=== PATIENT | male | born 1965 | race Caucasian/White ===

== ENCOUNTER 2017-04-08 10:46 | Outpatient (CLI) ==
[2015-03-01 17:28] VITALS: BMI 28.7
[2017-04-08 11:04] LABS: BASOPHILS % (AUTO) 0.4 % (0.0-3.0); EOSINOPHILS # (AUTO) 0.1 K/ul (0.0-0.7); EOSINOPHILS % (AUTO) 1.4 % (0.0-7.0); HEMOGLOBIN 14.5 g/dl (14.0-18.0); IMMATURE GRANULOCYTE % (AUTO) 0.5 % (0.0-5.0); LYMPHOCYTES # (AUTO) 2.8 K/uL (0.60-3.4); LYMPHOCYTES % (AUTO) 29.1 (10.0-50.0); MEAN CORPUSCULAR HEMOGLOBIN 31.5 pg (27.0-31.0); MEAN CORPUSCULAR HGB CONC 34.5 (31.8-35.4); MEAN CORPUSCULAR VOLUME 91.1 fl (80.0-94.0); MONOCYTES % (AUTO) 10.3 (0-10); NEUTROPHILS # (AUTO) 5.6 K/ul (2.0-6.9); NEUTROPHILS % (AUTO) 58.3; PLATELET COUNT 222 10^3/uL (140-440); RED BLOOD COUNT 4.61 10^6/ul (4.70-6.10); WHITE BLOOD COUNT 9.54 K/ul (4.2-10.2)
[2017-04-08 11:43] LABS: ALBUMIN 3.9 g/dL (3.4-5.0); ALBUMIN/GLOBULIN RATIO 1.11; ANION GAP 13.2; BILIRUBIN,TOTAL 0.39 mg/dL (0.00-1.20); BUN/CREATININE RATIO 14.28; CHOL/HDL RATIO 4.7 (4.5-6.4); CREATININE 0.77 mg/dL (0.60-1.10); POTASSIUM 4.2 mmol/L (3.5-5.1); TOTAL PROTEIN 7.4 g/dL (6.4-8.2)
--- NOTE | 2017-04-08 12:08 | CT ---
Exam: CT of the abdomen pelvis without intravenous contrast. Comparison: 01/30/2014. Reason for exam: Unspecified abdominal pain. FINDINGS: Image interpretation is limited by the lack of intravenous contrast administration. Similar appearing heterogeneous mass lesion in the right lower lobe measuring approximately 5.1 cm. No pleural effusion, or focal consolidation. Atherosclerotic disease is seen within the coronary arterial vasculature. The liver, gallbladder, spleen, pancreas, and adrenal glands appear grossly unremarkable within the limitations of a noncontrasted examination. No hydronephrosis or hydroureter is seen in either kidney. Small vascular calcifications versus nonobstructive stones (measuring up to 3 mm) in the right renal collecting system. Incidental note of a splenule adjacent to the pancreatic tail. No focal small bowel dilatation or transition point. The appendix is unremarkable. There are several only fat containing periumbilical and ventral hernias. The bladder appears grossly unremarkable. Atherosclerotic disease is seen within the aorta and distal arterial vasculature. No suspicious appearing osteoblastic or osteolytic lesions. Degenerative disease is seen in the lumbosacral spine. Impression: 1. No acute imaging findings are seen within the abdomen or pelvis. 2. Similar appearing mixed density mass in the right lung base. 3. Nonobstructive right-sided nephrolithiasis
== END 2017-04-08 10:47 ==
LOC: RAD 10:46
PROVIDERS: ATTEND Emergency Medicine
DX: R10.9 Unspecified abdominal pain (principal); K43.9 Ventral hernia without obstruction or gangrene; I25.10 Atherosclerotic heart disease of native coronary artery without angina pectoris; R06.02 Shortness of breath
CPT/HCPCS: 36415; 80053; 80061; 83036; 84443; 85025

== ENCOUNTER 2017-04-18 08:47 | Outpatient (CLI) ==
[2015-03-01 17:28] VITALS: BMI 28.7
--- NOTE | 2017-04-18 10:15 | MRI ---
EXAM: MRI lumbar spine without IV contrast. DATE: 04/18/2017. HISTORY: Lumbar spondylosis with radiculopathy. TECHNIQUE: Sagittal and axial T1W and T2W sequences of the lumbar spine along with sagittal IR and coronal T2W sequences were obtained using 1.2 Sara magnet. No IV contrast. COMPARISON: CT abdomen/pelvis 04/08/2017. FINDINGS: There are five [id number] lumbar vertebra. No lumbar scoliosis is evident. No acut e lumbar fracture, subluxation, osseous malignancy, or pars interarticularis defect is demonstrated. Prominent osteophytes are observed at L2-3 and L3-4. Smaller osteophytes are noted at other lumba r levels. Lumbar vertebra are normal in height. Small, chronic Schmorl's nodes are identified at T 11, T12, and L5. T2W/T1W bone marrow signal is mildly heterogeneous due to areas of fatty infiltrat ion. Mild L2-3 and moderate L3-4 disc space narrowing is detected. No sacral fracture or stress re action is evident. Visible portion of each SI joint is grossly normal. Conus medullaris terminates at L1. Visible spinal cord is normal. No retroperitoneal lymphadenopathy, paraspinal mass, or aortic aneurysm is detected. Paraspinal musc ulature is symmetric bilaterally. Visible portions of the liver, spleen, adrenal glands and kidneys are normal. Segmental analysis: T11-12: Normal. T12-L1: Normal. L1-2: Normal. L2-3: Small concentric disc bulge, minor left facet arthropathy, and abundant dorsal epidural fat c ause mild central canal stenosis, minor right foraminal narrowing, and mild left foraminal stenosis. Left L2 nerve root contacts the disc bulge just lateral to the foramen. L3-4: Small concentric disc bulge, minor facet arthropathy, and abundant dorsal epidural fat cause mild central canal stenosis, minor/mild right foraminal narrowing, and minor left foraminal encroach ment. Right L3 nerve root may contact the disc bulge near the lateral margin of the foramen. L4-5: Minimal concentric disc bulge and minor left facet disease cause mild bilateral foraminal peng rowing. No central canal stenosis. L5-S1: Minor posterior to foraminal disc bulge and minor facet disease cause mild right and moderat e left foraminal stenoses. Left L5 nerve root contacts the disc bulge near the lateral margin of th e foramen. No central canal stenosis. IMPRESSIONS: 1. Lumbar spine moderate spondylosis, minor facet arthropathy, and multilevel mild DDD 2. Multilevel foraminal stenoses as described. Left L2, right L3, and left L5 nerve roots appear c ompromised near the foramen, and may be sources for pain/radiculopathy. 3. Mild central canal stenoses at L2-3 and L3-4. 4. T - L-spine small, chronic Schmorl's nodes. 5. Mild, benign bone marrow fatty infiltration.
== END 2017-04-18 08:48 | disposition home or self-care (01) ==
LOC: RAD 08:47
PROVIDERS: ATTEND Emergency Medicine
DX: M47.26 Other spondylosis with radiculopathy, lumbar region (principal)

== ENCOUNTER 2017-04-20 07:46 | Outpatient (CLI) ==
[2015-03-01 17:28] VITALS: BMI 28.7
--- NOTE | 2017-04-20 08:42 | CT ---
EXAM: CT of the chest with contrast History: Follow-up right lung mass. Comparison: Chest CT 07/21/2016 Technique: Multiplanar CT images through the thorax were obtained following administration of IV co ntrast Findings: Heart size is within normal limits. Coronary calcifications. No pericardial effusion. N o pathologically enlarged thoracic lymph nodes. Great vessels are unremarkable. Right lower lobe lesion containing fat and soft tissue has slightly increased in size compared to th e prior study with the more solid component now measuring 4.6 cm and previously measured 4.1 cm. No developing lung masses. No pleural fluid and no pneumothorax. Within the visualized upper abdomen, fatty liver. No acute osseous abnormalities. Sternotomy wires . Impression: Right lower lobe lesion with the more solid component slightly increased in size compar ed to the prior study. Differential diagnosis is broad and would include lipoid pneumonia, hamartom a, mycetoma, or malignancy. Tissue sampling is recommended at this point.
== END 2017-04-20 07:47 | disposition home or self-care (01) ==
LOC: RAD 07:46
PROVIDERS: ATTEND Emergency Medicine
DX: R91.8 Other nonspecific abnormal finding of lung field (principal)

== ENCOUNTER 2017-06-12 19:04 | Emergency (ER) ==
[2017-06-12] MEDS ORDERED: SODIUM CHLORIDE 1,000 ML IV STA (19:08)
[2017-06-12] MEDS ORDERED: NITROSTAT SL PRN (19:08)
[2017-06-12] MEDS ORDERED: ZOFRAN ODT PO STA (19:08)
[2017-06-12] MEDS ORDERED: MORPHINE 2 MG/ML SYRINGE IVP STA (19:08)
[2017-06-12 19:15] VITALS: TEMP 97.7; BMI 30.1
[2017-06-12 19:15] LABS: BASOPHILS % (AUTO) 0.4 % (0.0-3.0); EOSINOPHILS # (AUTO) 0.4 K/ul (0.0-0.7); HEMATOCRIT 39.3 % (42.0-52.0); HEMOGLOBIN 13.5 g/dl (14.0-18.0); IMMATURE GRANULOCYTE % (AUTO) 0.3 % (0.0-5.0); LYMPHOCYTES # (AUTO) 3.6 K/uL (0.60-3.4); LYMPHOCYTES % (AUTO) 36.5 (10.0-50.0); MEAN CORPUSCULAR HEMOGLOBIN 31.2 pg (27.0-31.0); MEAN CORPUSCULAR HGB CONC 34.4 (31.8-35.4); MEAN CORPUSCULAR VOLUME 90.8 fl (80.0-94.0); MONOCYTES # (AUTO) 0.9 K/uL (0.4-2.0); MONOCYTES % (AUTO) 8.9 (0-10); NEUTROPHILS # (AUTO) 4.9 K/ul (2.0-6.9); NEUTROPHILS % (AUTO) 49.9; PLATELET COUNT 228 10^3/uL (140-440); RED BLOOD COUNT 4.33 10^6/ul (4.70-6.10); WHITE BLOOD COUNT 9.73 K/ul (4.2-10.2)
--- NOTE | 2017-06-12 19:17 | ED.PDOC ---
General ED Provider: Dr. EARLE SHAW-ER Chief Complaint: Chest Pain Stated Complaint: im having chest pain--i took a ntg todayand it got better but hurting again Time Seen by Physician: 19:10 Mode of Arrival: Walk-In Information Source: Patient Exam Limitations: No limitations [facility] and Triage Documentation Reviewed and Agree: Yes Cardiovascular Complaint Exam - Chest Pain Complaint/Exam Onset: Gradual Duration: several hours Symptoms Are: Still present Initial Severity: Mild Current Severity: Mild Location: Reports: Diffuse Character: Reports: Dull, Aching, Pressure, Sharp Aggravating: Reports: Exertion Alleviating: Reports: Nitro Related Surgical History: Reports: CABG History of Healthcare-Acquired Pneumonia: Reports: No AMI/ACS Risk Factors: Reports: Myocardial Infarction TAD Risk Factors: Reports: None Pulmonary Embolism Risk Factors: Reports: None Prior Care for this Complaint: Yes Recent Stress Test: No Recent Echo/LV Function: No JVD Present: No Subcutaneous Emphysema Present: No Diminshed Breath Sounds: No Reproducible Chest Wall Pain: No Bilateral Pulses Present: Yes Unequal Pulses Noted: No If Risk Factors for AMI/ACS Consider: EKG, Cardiac Enzymes, Serial Studies, Oxygen, Aspirin Review of Systems - Review Of Systems Constitutional: Reports: No symptoms Eyes: Reports: No symptoms Ears, Nose, Mouth, Throat: Reports: No symptoms Respiratory: Reports: No symptoms Cardiac: Reports: Chest pain GI: Reports: No symptoms : Reports: No symptoms Musculoskeletal: Reports: No symptoms Skin: Reports: No symptoms Neurological: Reports: No symptoms Endocrine: Reports: No symptoms Hematologic/Lymphatic: Reports: No symptoms All Other Systems: Reviewed and Negative Past Medical History - Past Medical History Previously Healthy: No Endocrine: Reports: Dyslipidemia Cardiovascular: Reports: None Respiratory: Reports: None Hematological: Reports: None Gastrointestinal: Reports: None Genitourinary: Reports: None Neuro/Psych: Reports: None Musculoskeletal: Reports: Other Cancer: Reports: None - Surgical History General Surgical History: Reports: None, Unknown - Family History Family History: Reports: Unknown - Social History Smoking Status: Current every day smoker, Heavy tobacco smoker Hx Substance Use: No Alcohol Screening: Occasionally Lives: With family - Immunizations Tetanus Shot up to Date: Yes Physical Exam - Physical Exam Appearance: Well-appearing, No pain distress, Well-nourished Pain Distress: Mild Eyes: RUPERT, EOMI, Conjunctiva clear ENT: Ears normal Neck: Supple Respiratory: Airway patent Cardiovascular: RRR, Pulses normal, No rub, No murmur GI/: Soft, Nontender, No masses, Bowel sounds normal, No Organomegaly Musculoskeletal: Normal strength, ROM intact, No edema, No calf tenderness Skin: Warm, Dry, Normal color Neurological: Sensation intact, Motor intact, Reflexes intact, Cranial nerves intact, Alert, Oriented Psychiatric: Affect appropriate, Mood appropriate, Anxious Physician Notification - Case Discussed Physician Notified: dr celis and dr faria --[facility] Time of Notification: 19:27 Critical Care Note - Critical Care Note Total Time (mins): 20 Course - Course Hematology/Chemistry: 06/12/17 19:14 Orders, Labs, Meds: Lab Review 06/12/17 19:14 WBC 9.73 RBC 4.33 L Hgb 13.5 L Hct 39.3 L MCV 90.8 MCH 31.2 H MCHC 34.4 RDW Coeff of Ian 13.2 Plt Count 228 Immature Gran % (Auto) 0.3 Neut % (Auto) 49.9 Lymph % (Auto) 36.5 Mellette % (Auto) 8.9 Eos % (Auto) 4.0 Baso % (Auto) 0.4 Immature Gran # (Auto) 0.0 Neut # 4.9 Lymph # 3.6 H Mellette # 0.9 Eos # 0.4 Baso # 0.0 Orders Category Date Time Status EKG-(ED ONLY) Stat CARDIO 06/12/17 19:07 Ordered ED LEGAL PROJECT MANAGER APPLIED .ONCE EMERGENCY 06/12/17 19:07 Active ED IV/MEDIPORT/POWERPORT .ONCE EMERGENCY 06/12/17 19:08 Active OXYGEN [ED APPLY O2] .ONCE EMERGENCY 06/12/17 19:07 Active AMYLASE Stat LAB 06/12/17 19:14 Received CBC W/ AUTO DIFF Stat LAB 06/12/17 19:14 Completed COMPREHENSIVE METABOLIC PANEL Stat LAB 06/12/17 19:14 Received CREATINE KINASE Stat LAB 06/12/17 19:14 Received LIPASE Stat LAB 06/12/17 19:14 Received TROPONIN I Stat LAB 06/12/17 19:14 Received 0.9 % Sodium Chloride [Saline Flush] MEDS 06/12/17 19:08 Ordered 1 syr IVF PRN PRN Morphine Sulfate [Morphine 2 mg/ml Syringe] MEDS 06/12/17 19:08 Discontinued 2 mg IVP ONCE STA Nitroglycerin [Nitrostat] MEDS 06/12/17 19:08 Ordered 0.4 mg SL Q5MIN X 3 DOSES PRN Ondansetron [Zofran Odt] MEDS 06/12/17 19:08 Discontinued 4 mg PO ONCE STA Sodium Chloride 0.9% [Sodium Chloride] 1,000 ml MEDS 06/12/17 19:08 Active IV 100 mls/hr CXR [CHEST, 1V AP ONLY] Stat RADS 06/12/17 19:08 Taken Medications Generic Name Dose Route Start Last Admin Trade Name Freq PRN Reason Stop Dose Admin Sodium Chloride 1,000 mls @ 100 mls/hr 06/12/17 19:08 Sodium Chloride IV 06/13/17 05:07 .Q10H STA Nitroglycerin 0.4 mg 06/12/17 19:08 Nitrostat SL Q5MIN X 3 DOSES PRN Chest Pain Sodium Chloride 1 syr 06/12/17 19:08 Saline Flush IVF PRN PRN To flush IV Discontinued Medications Generic Name Dose Route Start Last Admin Trade Name Freq PRN Reason Stop Dose Admin Morphine Sulfate 2 mg 06/12/17 19:08 Morphine 2 Mg/Ml Syringe IVP 06/12/17 19:09 ONCE STA Ondansetron HCl 4 mg 06/12/17 19:08 Zofran Odt PO 06/12/17 19:09 ONCE STA Vital Signs: Temp Pulse Resp BP Pulse Ox 06/12/17 19:06 97.7 F 69 20 132/82 98 CHRISTIAN Risk Score CHRISTIAN Risk Score: Risk Score Odds of by 30D 0 0.1 (0.1-0.2) 1 0.3 (0.2-0.3) 2 0.4 (0.3-0.5) 3 0.7 (0.6-0.9) 4 1.2 (1.0-1.5) 5 2.2 (1.9-2.6) 6 3.0 (2.5-3.6) 7 4.8 (3.8-6.1) Departure - Departure Time of Disposition: 19:27 Disposition: TSF SHORT-TRM HOSP Discharge Problem: Chest pain Instructions: Chest Pain (ED) Condition: Good Pt referred to PMD for follow-up: Yes Allergies/Adverse Reactions: Allergies Penicillins Allergy (Mild, Verified 06/12/17 19:15) Vomiting Home Medications: Ambulatory Orders Ibuprofen 200 mg PO Q6HR PRN 08/28/14 Amlodipine Besylate 5 mg PO d 04/07/17 Aspirin 81 mg PO BID 04/07/17 Clopidogrel Bisulfate [Plavix] 75 mg PO d 04/07/17 Metoprolol Succinate 25 mg PO BID 04/07/17 Atorvastatin Calcium 80 mg PO DAILY 06/12/17 Isosorbide Dinitrate 30 mg PO TID 06/12/17 Nitroglycerin 0.4 mg SL DIRECTED PRN 06/12/17 Polyethylene Glycol 3350 [Miralax] 17 gm PO DAILY PRN 06/12/17 Transfer Form Completed: Yes Disposition Discussed With: Patient
[2017-06-12] MEDS ORDERED: NITROSTAT SL ONE (19:24)
[2017-06-12 19:49] LABS: ALBUMIN 3.7 g/dL (3.4-5.0); ALBUMIN/GLOBULIN RATIO 1.12; ANION GAP 13.3; BILIRUBIN,TOTAL 0.31 mg/dL (0.00-1.20); BUN/CREATININE RATIO 15.95; CALCIUM 9.5 mg/dL (8.2-10.2); CREATININE 0.94 mg/dL (0.60-1.10); POTASSIUM 4.3 mmol/L (3.5-5.1); TROPONIN I 0.016 ng/ml (0.0000-0.4000)
[2017-06-12 19:50] LABS: CREATINE KINASE MB 1.5 ng/ml (0.0-3.6)
[2017-06-12 20:00] VITALS: BP 126/80
--- NOTE | 2017-06-13 07:42 | DI ---
EXAM: CHEST FRONTAL VIEW HISTORY: Chest pain. COMPARISON: 03/01/2015 FINDINGS: Heart size remains within normal limits. There are sternotomy wires which are new since p revious exam, some discontinuous. No acute infiltrates are seen. No vascular congestion. There is n o consolidation, visible pleural fluid or pneumothorax. Bones reveal no acute fracture. IMPRESSION: No acute cardiopulmonary process.
== END 2017-06-12 20:46 | disposition short-term general hospital (02) ==
LOC: ED 19:04
DX: R07.9 Chest pain, unspecified (principal); E78.5 Hyperlipidemia, unspecified; I25.2 Old myocardial infarction; F17.210 Nicotine dependence, cigarettes, uncomplicated; Z79.899 Other long term (current) drug therapy; Z95.1 Presence of aortocoronary bypass graft
CPT/HCPCS: 36415; 80053; 82150; 82550; 82553; 83690; 84484; 85025; 93005; 93010; 96361; 96374; 99285

== ENCOUNTER 2017-06-12 20:49 | Outpatient (CLI) ==
[2017-06-12 19:05] VITALS: BMI 28.7
== END 2017-06-12 20:50 | disposition home or self-care (01) ==
LOC: AMBL 20:49
PROVIDERS: ATTEND Family Medicine
DX: R07.9 Chest pain, unspecified (principal)

== ENCOUNTER 2017-06-16 09:14 | Outpatient (CLI) ==
--- NOTE | 2017-06-16 09:40 | DI ---
EXAM: Cervical spine four views HISTORY: Arthropathy COMPARISON: None TECHNIQUE: Four views cervical spine were performed FINDINGS: Vertebral bodies normal height. No fracture. No subluxation. Straightening of the misti l cervical lordosis. Mild intervertebral disc space narrowing C5-C6. Multilevel facet and uncoverte bral hypertrophy. Prevertebral soft tissues appear normal. Carotid atherosclerotic vascular calcific ations. IMPRESSION: 1. Chronic discogenic degenerative disease and facet arthrosis. 2. Straightening of the normal cervical lordosis.
== END 2017-06-16 09:15 | disposition home or self-care (01) ==
LOC: RAD 09:14
PROVIDERS: ATTEND Pain Medicine Interventional Pain Medicine
DX: M47.812 Spondylosis without myelopathy or radiculopathy, cervical region (principal)

== ENCOUNTER 2017-12-29 15:32 | Observation (INO) ==
[2017-12-29 16:21] VITALS: BMI 31.6
[2017-12-29] MEDS ORDERED: NITROSTAT SL PRN (16:24)
[2017-12-29] MEDS ORDERED: SODIUM CHLORIDE 1,000 ML IV SCH (16:30)
--- NOTE | 2017-12-29 17:45 | CT ---
EXAM: CT scan of the head without contrast HISTORY: Dizzy TECHNIQUE: Helical imaging of the head was performed without contrast. 5 mm thin axial images and c oronal and sagittal images were provided for interpretation. FINDINGS: The flores-white interface appears normal. No acute hemorrhages are seen. There is no mass effect. There are no extraaxial collections. The basal cisterns are patent. The paranasal sinuses and mastoid air cells are clear. IMPRESSION: No acute intracranial abnormalities are seen.
--- NOTE | 2017-12-29 17:50 | CT ---
EXAM: CT scan of the chest without contrast HISTORY: Shortness of breath TECHNIQUE: Imaging of the chest was performed without contrast. 5 mm thin axial images and coronal and sagittal images were provided for interpretation. Comparison 04/20/2017 CT scan of the chest. FINDINGS: The heart is normal size. No mediastinal abnormalities are seen. There is atheroscleroti c calcification of the thoracic aorta and coronary arteries. There is stable appearance of a complex lesion containing fat and soft tissue seen within the right lower lobe of the lung. Lesion is seen o n axial image 79. The lesion measures 4.8 cm AP maximum. The lesion measures approximately 5.6 cm t ransverse and this is not significantly changed. The lungs are otherwise clear. No lytic or blastic lesions are seen within the osseous structures. IMPRESSION: Stable appearance of a complex lesion seen within the right lower lobe of the lung conta ining soft tissue and fat. The lesion is also stable when compared to previous study of 02/01/2014. Continued follow-up evaluation of the lesion should be performed. A slow growing malignancy cannot b e excluded. No evidence of new infiltrate or consolidation.
[2017-12-29] MEDS: ASPIRIN CHEWABLE PO SCH (18:45)
[2017-12-29] MEDS ORDERED: ATIVAN PO STA (20:08)
[2017-12-29] MEDS: SORBITRATE PO SCH (20:26)
[2017-12-29] MEDS: TOPROL XL PO SCH (20:28)
[2017-12-29] MEDS: SYMBICORT 160-4.5 MCG INHALER IH SCH (20:34)
[2017-12-29] MEDS ORDERED: NON-FORMULARY MEDICATION (Isosorbide Dinitrate [Isosorbide Dinitrate] 30 MG) PO SCH (21:00)
[2017-12-30 06:09] VITALS: BP 129/78; TEMP 97.7
[2017-12-30] MEDS: SYMBICORT 160-4.5 MCG INHALER IH SCH (08:41)
[2017-12-30] MEDS: TOPROL XL PO SCH (08:42)
[2017-12-30] MEDS: SORBITRATE PO SCH (08:42)
[2017-12-30] MEDS: ASPIRIN CHEWABLE PO SCH (08:42)
[2017-12-30] MEDS ORDERED: PLAVIX PO SCH (09:00)
[2017-12-30] MEDS ORDERED: NORVASC PO SCH (09:00)
[2017-12-30] MEDS ORDERED: LIPITOR PO SCH (09:00)
[2017-12-30] MEDS ORDERED: NON-FORMULARY MEDICATION (Atorvastatin Calcium [Atorvastatin Calcium] 80 MG) PO SCH (09:00)
--- NOTE | 2017-12-30 09:27 | US ---
EXAM: Bilateral carotid artery Doppler History: Dizziness. Technique: Multiple sonographic images through the bilateral internal carotid arteries were obtained . Color duplex Doppler was used to interrogate vascular flow. Findings: The right ICA peak systolic velocity is within normal limits measuring 1.0 meters per second. The ri ght ICA/cca PSV ratio is normal at 1.5. The right vertebral artery is patent and demonstrates antegr cassie flow. Zhu scale images demonstrate mild to moderate plaque buildup within the right internal ca rotid artery. The left ICA peak systolic velocity is within normal limits measuring 1.0. Meters per second. The l eft ICA/cca PSV ratio is normal at 1.4. The left vertebral artery is patent and demonstrates antegra de flow. Zhu scale images demonstrate mild to moderate plaque buildup within the left internal lockhart tid artery. Impression: No significant hemodynamic stenosis of the bilateral internal carotid arteries.
--- NOTE | 2018-02-16 14:24 | DS ---
DATE OF SERVICE: 12/30/17 FINAL DIAGNOSIS: 1. DIZZINESS MOST LIKELY MIDDLE EAR INFECTION 2. UPPER RESPIRATORY INFECTION AND BRONCHITIS 3. SHORTNESS OF BREATH SECONDARY TO THE BRONCHITIS 4. HYPERTENSION 5. COPD 6. LUNG NODULE 7. CAD STATUS POST BYPASS SURGERY 8. HERNIA REPAIR DISCHARGE INSTRUCTIONS: 1. Discharge the patient home. 2. Followup appointment at the [facility] within 5 to 7 days. 3. Continue the home medication. MEDICATIONS AT DISCHARGE: Albuterol Azithromycin Symbicort Viagra (patient is not using at this time) Ibuprofen Norvasc Aspirin Atorvastatin Plavix Isosorbide Metoprolol NEW PRESCRIPTIONS: Prednisone 10 mg twice a day times five more days DIET INSTRUCTIONS: Cardiac and Healthy ACTIVITY: As much as tolerated DISEASE SPECIFIC EDUCATION: COPD and pneumonia, dizziness and middle ear infection have been discussed, verbalized understanding. HOSPITAL COURSE: This 52-year-old came to the office after a long time, almost six months, complaining of cough, congestion, shortness of breath and feeling dizzy. Given his multiple medical problems, the patient was admitted to the hospital for observation. CT chest, carotid ultrasound was negative. CT head was negative for stroke. The patient was started on home medication Ativan, Metoprolol, Isosorbide, and IV fluids. As the patient's tests were all negative for stroke and acute coronary process or any cardiovascular process, dizziness was probably from middle ear infection and shortness of breath with COPD exacerbation and bronchitis. The patient was already sent antibiotic, Z-pack and Prednisone from the clinic. Advised him to continue the same medication. I will be seeing him at [facility] within 5 to 7 days time. TIME SPENT: MORE THAN 65 MINUTES MTDD
== END 2017-12-30 13:00 | disposition home or self-care (01) ==
LOC: MEDSURG A 15:32 → INTOOBSV 15:32
PROVIDERS: ADMIT Emergency Medicine; ATTEND Emergency Medicine
DX: R10.9 Unspecified abdominal pain (principal); R42 Dizziness and giddiness; J06.9 Acute upper respiratory infection, unspecified; J40 Bronchitis, not specified as acute or chronic; R06.02 Shortness of breath; I10 Essential (primary) hypertension; J44.9 Chronic obstructive pulmonary disease, unspecified; R91.1 Solitary pulmonary nodule
CPT/HCPCS: 36415; 80053; 82550; 82553; 83880; 84484; 85025; 93005; 93010; 96360; 96361; 99217; 99220